=== PATIENT | female | born 1945 | race American Indian/Alaskan Native ===

== ENCOUNTER 2016-12-09 12:04 | Emergency (ER) | payer MEDICARE ==
[2016-12-09 13:05] LABS: Hematocrit 33.8 % (30.3-42.9); Mean Corpuscular HGB Conc 33 % (30-34); Mean Corpuscular Volume 78 fl (79-97); Platelet Count 483 K/mm3 (140-440); Red Blood Count 4.33 M/mm3 (3.65-5.03); Red Cell Distribution Width 18.3 % (13.2-15.2); White Blood Count 11.8 K/mm3 (4.5-11.0)
[2016-12-09 13:06] LABS: Mean Corpuscular Hemoglobin 26 pg (28-32)
[2016-12-09 13:18] LABS: BUN/Creatinine Ratio 30.71; Calcium 10.2 mg/dL (8.4-10.2); Chloride 95.6 mmol/L (98-107); Potassium 4.8 mmol/L (3.6-5.0)
[2016-12-09 13:36] LABS: Basophils % (Manual) 0 % (0.0-1.8); Blastocytes % (Manual) 0 %; Eosinophils % (Manual) 0 % (0.0-4.3)
[2016-12-09 13:37] LABS: Anisocytosis 1+; Diff Status Complete; Giant Platelets Rare; Large Platelets Few; Platelet Clumps Few; Spherocytes Few
--- NOTE | 2016-12-09 15:59 | Cat Scan Report ---
CT HEAD WITHOUT CONTRAST INDICATION: Headache. History of CVA. COMPARISON: None similar at this institution. FINDINGS: Noncontrast head CT demonstrates age-appropriate ventricles and sulci with mild periventricular and few white matter hypodense small vessel ischemic disease. Mild, benign bilateral basal ganglia calcifications. No definite acute infarct, hemorrhage, mass effect or midline shift. No abnormal extra axial fluid collections. Normal posterior fossa with preserved basilar cisterns. Abnormal, hyperdense bilateral eye globes. Clear paranasal sinuses and mastoid air cells. Atherosclerotic internal carotid artery calcifications. Intact calvarium. Hyperostosis frontalis interna. Normal scalp. Edentulous jaw. CONCLUSION: No acute intracranial CT abnormality, as described. Thank you for the opportunity to participate in this patient's care.
[2016-12-09] MEDS: FIORICET PO ONE ×2 (16:55→18:50)
--- NOTE | 2016-12-09 18:07 | Emergency Department Report ---
ED Headache HPI - General Chief Complaint: Headache Stated Complaint: HEADACHE Time Seen by Provider: 12/09/16 14:29 Source: patient, [facility] records Exam Limitations: no limitations - History of Present Illness Initial Comments: 71-year-old female [facility] a local [facility] for evaluation of headache. Patient states she has a throbbing headache across the top of her head. Headache is been present for the past 4 days. Pain has been constant. She denies visual changes, nausea, or vomiting. Patient has not taken any medication for this. There are no other complaints. Timing/Duration: constant Quality: moderate Head Injury Location: parietal Recent Head Trauma: no recent headache/trauma Associated Symptoms: denies symptoms Allergies/Adverse Reactions: Allergies No Known Allergies Allergy (Unverified 12/09/16 12:45) Home Medications: Ambulatory Orders Aspirin [Aspirin BABY CHEW TAB] 81 mg PO DAILY 12/09/16 Butalb/Acetamin/Caff 50-325-40 [Fioricet] 1 each PO Q4H PRN #20 tablet 12/09/16 Carvedilol [Coreg] 3.125 mg PO BID 12/09/16 Cyclobenzaprine [Flexeril] 10 mg PO TID PRN 12/09/16 HYDROcodone/APAP 5-325 [[place] 5/325] 1 each PO Q6HR PRN 12/09/16 Insulin Lispro [Humalog 100 UNITS/ML Kwikpen] 10 units SQ AC 12/09/16 Levofloxacin [Levaquin TAB] 500 mg PO QDAY 12/09/16 Lidocaine [Lidoderm Patch] 2 each TP DAILY 12/09/16 Losartan [Cozaar] 25 mg PO QDAY 12/09/16 ED Review of Systems ROS: Stated complaint: HEADACHE Other details as noted in HPI Comment: All other systems reviewed and negative Neurological: headache ED Past Medical Hx - Past Medical History Previous Medical History?: Yes Hx Hypertension: Yes Hx CVA: Yes (x2) Hx Diabetes: Yes Hx Renal Disease: Yes Hx Arthritis: Yes Additional medical history: Gout - Surgical History Past Surgical History?: Yes Additional Surgical History: - Family History Family history: no significant - Social History Smoking Status: Never Smoker Substance Use Type: None - Medications Home Medications: Home Medications Medication Instructions Recorded Confirmed Last Taken Type Aspirin [Aspirin BABY CHEW TAB] 81 mg PO DAILY 12/09/16 12/09/16 Unknown History Butalb/Acetamin/Caff 50-325-40 1 each PO Q4H PRN #20 tablet 12/09/16 Unknown Rx [Fioricet] Carvedilol [Coreg] 3.125 mg PO BID 12/09/16 12/09/16 Unknown History Cyclobenzaprine [Flexeril] 10 mg PO TID PRN 12/09/16 12/09/16 Unknown History HYDROcodone/APAP 5-325 [[place] 1 each PO Q6HR PRN 12/09/16 12/09/16 Unknown History 5/325] Insulin Lispro [Humalog 100 10 units SQ AC 12/09/16 12/09/16 Unknown History UNITS/ML Kwikpen] Levofloxacin [Levaquin TAB] 500 mg PO QDAY 12/09/16 12/09/16 Unknown History Lidocaine [Lidoderm Patch] 2 each TP DAILY 12/09/16 12/09/16 Unknown History Losartan [Cozaar] 25 mg PO QDAY 12/09/16 12/09/16 Unknown History ED Physical Exam - General Limitations: Physical Limitation General appearance: alert, in no apparent distress - Head Head exam: Present: atraumatic, normocephalic - Eye Eye exam: Present: normal appearance, PERRL, EOMI - ENT ENT exam: Present: normal exam, normal orophraynx, mucous membranes moist - Neck Neck exam: Present: normal inspection, full ROM. Absent: tenderness - Respiratory Respiratory exam: Present: normal lung sounds bilaterally. Absent: respiratory distress - Cardiovascular Cardiovascular Exam: Present: regular rate, normal rhythm, normal heart sounds - GI/Abdominal GI/Abdominal exam: Present: soft, normal bowel sounds. Absent: distended, tenderness - Extremities Exam Extremities exam: Present: normal inspection, full ROM. Absent: tenderness - Back Exam Back exam: Present: normal inspection, full ROM. Absent: tenderness - Neurological Exam Neurological exam: Present: alert, oriented X3, motor sensory deficit (4/5 strength right upper and lower extremities. Dysarthric speech. At baseline per report.) - Skin Skin exam: Present: warm, dry, intact ED Course Vital Signs 12/09/16 12/09/16 12/09/16 12:29 12:37 13:00 Temperature 98.0 F Pulse Rate 90 91 H Respiratory 28 H Rate Blood Pressure 136/69 132/73 O2 Sat by Pulse 91 95 94 Oximetry 12/09/16 14:00 Temperature Pulse Rate 92 H Respiratory 27 H Rate Blood Pressure 135/62 O2 Sat by Pulse 95 Oximetry ED Medical Decision Making - Lab Data Result diagrams: 12/09/16 12:48 12/09/16 12:48 - Radiology Data Radiology results: report reviewed, image reviewed CT of the head shows no acute intracranial abnormality. - Medical Decision Making Lab and imaging results reviewed and discussed with the patient. Patient refused pain medication, stating she only wanted to know the results of her CT scan. [facility]. - Differential Diagnosis tension headache, migraine headache, ICH Critical care attestation.: If time is entered above; I have spent that time in minutes in the direct care of this critically ill patient, excluding procedure time. ED Disposition Clinical Impression: Headache Qualifiers: Headache type: tension-type Headache chronicity pattern: acute headache Intractability: not intractable Qualified Code(s): G44.209 - Tension-type headache, unspecified, not intractable Disposition: DC/TX ANOTHER TYPE HEALTHCARE Is pt being admited?: No Condition: Stable Instructions: Acute Headache (ED) Prescriptions: Butalb/Acetamin/Caff 50-325-40 [Fioricet] 1 each PO Q4H PRN #20 tablet PRN Reason: Headache Referrals: PRIMARY CARE, [Primary Care Provider] - 3-5 Days Time of Disposition: 18:19
[2016-12-09] MEDS ORDERED: FIORICET ONE (18:35)
[2016-12-09] MEDS ORDERED: TORADOL IM ONE (18:55)
[2016-12-09 19:54] VITALS: BP 133/71
== END 2016-12-09 19:57 | disposition other institution (70) ==
LOC: ED 12:04
DX: G44.209 Tension-type headache, unspecified, not intractable (principal); I10 Essential (primary) hypertension; I63.9 Cerebral infarction, unspecified; E11.9 Type 2 diabetes mellitus without complications; M19.90 Unspecified osteoarthritis, unspecified site; Z79.82 Long term (current) use of aspirin; Z79.4 Long term (current) use of insulin
CPT/HCPCS: 36415; 70450; 80048; 82962; 85007; 85025; 96372; 99284; J1885